=== PATIENT | male | born 1970 | race American Indian/Alaskan Native ===

== ENCOUNTER 2016-10-08 09:07 | Emergency (ER) | payer BC ==
[2016-10-08 09:46] LABS: Basophils % (Auto) 0.5 % (0.0-1.8); Eosinophils % (Auto) 1.3 % (0.0-4.3); Hematocrit 42.2 % (35.5-45.6); Hemoglobin 14.5 gm/dl (11.8-15.2); Mean Corpuscular HGB Conc 34 % (32-34); Mean Corpuscular Hemoglobin 32 pg (28-32); Mean Corpuscular Volume 93 fl (84-94); Platelet Count 222 K/mm3 (140-440); Red Blood Count 4.55 M/mm3 (3.65-5.03); Red Cell Distribution Width 12.4 % (13.2-15.2); White Blood Count 7.7 K/mm3 (4.5-11.0)
[2016-10-08 10:14] LABS: Alanine Aminotransferase 27 units/L (7-56); Albumin 4.5 g/dL (3.9-5); Albumin/Globulin Ratio 1.3 %; Alkaline Phosphatase 76 units/L (35-129); Anion Gap 18 mmol/L; BUN/Creatinine Ratio 18.18; Blood Urea Nitrogen 20 mg/dL (9-20); Calcium 9.1 mg/dL (8.4-10.2); Carbon Dioxide 26 mmol/L (22-30); Glucose 116 mg/dL (75-100); Potassium 4.2 mmol/L (3.6-5.0); Sodium 139 mmol/L (137-145); Total Protein 7.9 g/dL (6.3-8.2)
[2016-10-08 12:14] LABS: RBC,Urine < 1.0 /HPF (0.0-6.0); WBC,Urine < 1.0 /HPF (0.0-6.0)
[2016-10-08 12:21] LABS: Bilirubin,Urine NEG (Negative); Blood,Urine NEG (Negative); Ketones,Urine NEG (Negative); Leukocyte Esterase,Urine NEG (Negative); Mucus,Urine FEW /HPF; Nitrite,Urine NEG (Negative); Protein,Urine <15 mg/dL mg/dL (Negative); Urobilinogen,Urine < 2.0 mg/dL (<2.0)
--- NOTE | 2016-10-08 12:33 | Emergency Department Report ---
ED Chest Pain HPI - General Chief Complaint: Chest Pain Stated Complaint: CHEST PAIN/SOB Time Seen by Provider: 10/08/16 12:08 Source: patient Mode of arrival: Ambulatory Limitations: No Limitations - History of Present Illness Initial Comments: 46-year-old male here with patient states that he had some stressful knees and started having palpitations in his chest. He got some chest tightness felt short of breath and had his hand shaking. He has had an episode like this before and feels like she has a history of panic attacks. He's also had a history of [place] and states this did not feel similar to that. No diaphoresis no radiation or nausea or vomiting or shortness of breath. -: Sudden Onset: during rest Pain Location: substernal Pain Radiation: none Improves With: nothing Worsens With: nothing, palpation Treatments Prior to Arrival: none - Related Data Allergies Allergy/AdvReac Type Severity Reaction Status Date / Time No Known Allergies Allergy Unverified 10/08/16 09:18 Heart Score - HEART Score History: Slightly suspicious EKG: Normal Age: 45-65 Risk factors: > 3 risk factors or hx of atherosclerotic disease Troponin: < normal limit HEART Score: 3 ED Review of Systems ROS: Stated complaint: CHEST PAIN/SOB Other details as noted in HPI Comment: All other systems reviewed and negative Constitutional: denies: chills, fever Eyes: denies: eye pain, eye discharge, vision change ENT: denies: ear pain, throat pain Respiratory: denies: cough, shortness of breath, wheezing Cardiovascular: chest pain. denies: palpitations Endocrine: no symptoms reported Gastrointestinal: denies: abdominal pain, nausea, diarrhea Genitourinary: denies: urgency, dysuria Musculoskeletal: denies: back pain, joint swelling, arthralgia Skin: denies: rash, lesions Neurological: denies: headache, weakness, paresthesias Psychiatric: anxiety. denies: depression, auditory hallucinations, visual hallucinations, homicidal thoughts, suicidal thoughts Hematological/Lymphatic: denies: easy bleeding, easy bruising ED Past Medical Hx - Past Medical History Hx Heart Attack/AMI: Yes (2010) Hx Psychiatric Treatment: Yes (ANXIETY DISORDER, DEPRESSION) - Surgical History Past Surgical History?: No - Family History Family history: no significant - Social History Smoking Status: Former Smoker Substance Use Type: Alcohol ED Physical Exam - General Limitations: No Limitations General appearance: alert, in no apparent distress - Head Head exam: Present: atraumatic, normocephalic - Eye Eye exam: Present: normal appearance - ENT ENT exam: Present: mucous membranes moist - Neck Neck exam: Present: normal inspection. Absent: lymphadenopathy, thyromegaly - Respiratory Respiratory exam: Present: normal lung sounds bilaterally. Absent: respiratory distress, wheezes, rales - Cardiovascular Cardiovascular Exam: Present: regular rate, normal rhythm. Absent: systolic murmur, diastolic murmur, rubs, gallop - GI/Abdominal GI/Abdominal exam: Present: soft, normal bowel sounds - Rectal Rectal exam: Present: deferred - Extremities Exam Extremities exam: Present: normal inspection - Back Exam Back exam: Present: normal inspection - Neurological Exam Neurological exam: Present: alert, oriented X3 - Psychiatric Psychiatric exam: Present: normal affect, normal mood - Skin Skin exam: Present: warm, dry, intact, normal color. Absent: rash ED Course Vital Signs 10/08/16 10/08/16 10/08/16 09:18 11:45 11:54 Temperature 98.0 F Pulse Rate 80 70 66 Respiratory 18 Rate Blood Pressure 141/98 136/90 O2 Sat by Pulse 100 Oximetry 10/08/16 10/08/16 10/08/16 12:00 12:10 12:20 Temperature Pulse Rate 70 69 73 Respiratory 23 13 12 Rate Blood Pressure 136/93 136/93 136/93 O2 Sat by Pulse 99 100 100 Oximetry 10/08/16 10/08/16 10/08/16 12:30 12:40 12:50 Temperature Pulse Rate 64 64 73 Respiratory 16 19 14 Rate Blood Pressure 136/90 136/90 136/90 O2 Sat by Pulse 98 97 98 Oximetry 10/08/16 10/08/16 13:00 13:10 Temperature Pulse Rate 64 86 Respiratory 13 19 Rate Blood Pressure 135/84 135/84 O2 Sat by Pulse 98 90 Oximetry ED Medical Decision Making - Lab Data Result diagrams: 10/08/16 09:32 10/08/16 09:32 Laboratory Results - last 24 hr 10/08/16 10/08/16 10/08/16 09:32 09:32 09:32 WBC 7.7 RBC 4.55 Hgb 14.5 Hct 42.2 MCV 93 MCH 32 MCHC 34 RDW 12.4 L Plt Count 222 Lymph % (Auto) 37.3 H [place] % (Auto) 5.0 Eos % (Auto) 1.3 Baso % (Auto) 0.5 Lymph # 2.9 [place] # 0.4 Eos # 0.1 Baso # 0.0 Seg Neutrophils % 55.9 Seg Neutrophils # 4.3 Sodium 139 Potassium 4.2 Chloride 99.0 Carbon Dioxide 26 Anion Gap 18 BUN 20 Creatinine 1.1 Estimated GFR > 60 BUN/Creatinine Ratio 18.18 Glucose 116 H Calcium 9.1 Total Bilirubin 0.80 AST 20 ALT 27 Alkaline Phosphatase 76 Troponin T < 0.010 Total Protein 7.9 Albumin 4.5 Albumin/Globulin Ratio 1.3 Urine Color Urine Turbidity Urine pH Ur Specific [place] Urine Protein Urine Glucose (UA) Urine Ketones Urine Blood Urine Nitrite Ur Reducing Substances Urine Bilirubin Urine Ictotest Urine Urobilinogen Ur Leukocyte Esterase Urine WBC (Auto) Urine RBC (Auto) U Epithel Cells (Auto) Urine Mucus 10/08/16 12:03 WBC RBC Hgb Hct MCV MCH MCHC RDW Plt Count Lymph % (Auto) [place] % (Auto) Eos % (Auto) Baso % (Auto) Lymph # [place] # Eos # Baso # Seg Neutrophils % Seg Neutrophils # Sodium Potassium Chloride Carbon Dioxide Anion Gap BUN Creatinine Estimated GFR BUN/Creatinine Ratio Glucose Calcium Total Bilirubin AST ALT Alkaline Phosphatase Troponin T Total Protein Albumin Albumin/Globulin Ratio Urine Color Yellow Urine Turbidity Clear Urine pH 5.0 Ur Specific [place] 1.023 Urine Protein <15 mg/dl Urine Glucose (UA) Neg Urine Ketones Neg Urine Blood Neg Urine Nitrite Neg Ur Reducing Substances Not Reportable Urine Bilirubin Neg Urine Ictotest Not Reportable Urine Urobilinogen < 2.0 Ur Leukocyte Esterase Neg Urine WBC (Auto) < 1.0 Urine RBC (Auto) < 1.0 U Epithel Cells (Auto) < 1.0 Urine Mucus Few Laboratory Last Values WBC 7.7 K/mm3 (4.5-11.0) 10/08/16 09:32 RBC 4.55 M/mm3 (3.65-5.03) 10/08/16 09:32 Hgb 14.5 gm/dl (11.8-15.2) 10/08/16 09:32 Hct 42.2 % (35.5-45.6) 10/08/16 09:32 MCV 93 fl (84-94) 10/08/16 09:32 MCH 32 pg (28-32) 10/08/16 09:32 MCHC 34 % (32-34) 10/08/16 09:32 RDW 12.4 % (13.2-15.2) L 10/08/16 09:32 Plt Count 222 K/mm3 (140-440) 10/08/16 09:32 Lymph % (Auto) 37.3 % (13.4-35.0) H 10/08/16 09:32 [place] % (Auto) 5.0 % (0.0-7.3) 10/08/16 09:32 Eos % (Auto) 1.3 % (0.0-4.3) 10/08/16 09:32 Baso % (Auto) 0.5 % (0.0-1.8) 10/08/16 09:32 Lymph # 2.9 K/mm3 (1.2-5.4) 10/08/16 09:32 [place] # 0.4 K/mm3 (0.0-0.8) 10/08/16 09:32 Eos # 0.1 K/mm3 (0.0-0.4) 10/08/16 09:32 Baso # 0.0 K/mm3 (0.0-0.1) 10/08/16 09:32 Seg Neutrophils % 55.9 % (40.0-70.0) 10/08/16 09:32 Seg Neutrophils # 4.3 K/mm3 (1.8-7.7) 10/08/16 09:32 Sodium 139 mmol/L (137-145) 10/08/16 09:32 Potassium 4.2 mmol/L (3.6-5.0) 10/08/16 09:32 Chloride 99.0 mmol/L (98-107) 10/08/16 09:32 Carbon Dioxide 26 mmol/L (22-30) 10/08/16 09:32 Anion Gap 18 mmol/L 10/08/16 09:32 BUN 20 mg/dL (9-20) 10/08/16 09:32 Creatinine 1.1 mg/dL (0.8-1.5) 10/08/16 09:32 Estimated GFR > 60 ml/min 10/08/16 09:32 BUN/Creatinine Ratio 18.18 % 10/08/16 09:32 Glucose 116 mg/dL (75-100) H 10/08/16 09:32 Calcium 9.1 mg/dL (8.4-10.2) 10/08/16 09:32 Total Bilirubin 0.80 mg/dL (0.1-1.2) 10/08/16 09:32 AST 20 units/L (5-40) 10/08/16 09:32 ALT 27 units/L (7-56) 10/08/16 09:32 Alkaline Phosphatase 76 units/L (35-129) 10/08/16 09:32 Troponin T < 0.010 ng/mL (0.00-0.029) 10/08/16 12:08 Total Protein 7.9 g/dL (6.3-8.2) 10/08/16 09:32 Albumin 4.5 g/dL (3.9-5) 10/08/16 09:32 Albumin/Globulin Ratio 1.3 % 10/08/16 09:32 Urine Color Yellow (Yellow) 10/08/16 12:03 Urine Turbidity Clear (Clear) 10/08/16 12:03 Urine pH 5.0 (5.0-7.0) 10/08/16 12:03 Ur Specific [place] 1.023 (1.003-1.030) 10/08/16 12:03 Urine Protein <15 mg/dl mg/dL (Negative) 10/08/16 12:03 Urine Glucose (UA) Neg mg/dL (Negative) 10/08/16 12:03 Urine Ketones Neg mg/dL (Negative) 10/08/16 12:03 Urine Blood Neg (Negative) 10/08/16 12:03 Urine Nitrite Neg (Negative) 10/08/16 12:03 Ur Reducing Substances Not Reportable 10/08/16 12:03 Urine Bilirubin Neg (Negative) 10/08/16 12:03 Urine Ictotest Not Reportable 10/08/16 12:03 Urine Urobilinogen < 2.0 mg/dL (<2.0) 10/08/16 12:03 Ur Leukocyte Esterase Neg (Negative) 10/08/16 12:03 Urine WBC (Auto) < 1.0 /HPF (0.0-6.0) 10/08/16 12:03 Urine RBC (Auto) < 1.0 /HPF (0.0-6.0) 10/08/16 12:03 U Epithel Cells (Auto) < 1.0 /HPF (0-13.0) 10/08/16 12:03 Urine Mucus Few /HPF 10/08/16 12:03 - EKG Data -: EKG Interpreted by Me - EKG Data 10/08/16 12:34 Normal sinus rhythm rate 81 normal axis normal intervals no ST-T wave changes 10/08/16 14:06 Repeat EKG sinus rate of 64 normal axis normal intervals no ST-T wave changes - Medical Decision Making Patient is a 46-year-old male here with chest pain and palpitations. His history is more consistent with likely anxiety. His EKG is normal as for his troponins negative his heart score places him at low risk. Plan repeat troponin and anticipate discharge with follow-up. He has a follow-up planned appointment with the [employer] on Monday. Portions of this chart were dictated with dictation software. There may be dictation errors contained within this note. Critical care attestation.: If time is entered above; I have spent that time in minutes in the direct care of this critically ill patient, excluding procedure time. ED Disposition Clinical Impression: Palpitations Disposition: DC-01 TO HOME OR SELFCARE Is pt being admited?: No Condition: Stable Instructions: Palpitations (ED) Additional Instructions: Follow-up with your [employer] as planned on Monday. Referrals: PRIMARY CARE, [Primary Care Provider] - 3-5 Days
--- NOTE | 2016-10-08 12:53 | XRay Report ---
Single view chest: History: Chest pain. Findings: Normal cardiomediastinal silhouette. Trachea is midline. No consolidation, pneumothorax or pleural effusion. Impression: No acute cardiopulmonary findings.
[2016-10-08 14:56] VITALS: BP 133/89
== END 2016-10-08 14:57 | disposition home or self-care (01) ==
LOC: ED 09:07
DX: R00.2 Palpitations (principal); R07.89 Other chest pain; R06.02 Shortness of breath; I25.2 Old myocardial infarction; Z87.891 Personal history of nicotine dependence
CPT/HCPCS: 36415; 71010; 80053; 81001; 84484; 85025; 93005; 93010; 99285